=== PATIENT | female | born 1980 | race Caucasian/White ===

== ENCOUNTER → 2018-01-08 | Outpatient (CLI) | payer OTHER | LOC: FIMAGING 14:33 | PROVIDERS: ATTEND Obstetrics & Gynecology | DX: O09.511 Supervision of elderly primigravida, first trimester (principal); Z3A.12 12 weeks gestation of pregnancy ==

== ENCOUNTER → 2018-03-01 | Outpatient (CLI) | payer OTHER | LOC: FIMAGING 13:25 | PROVIDERS: ATTEND Advanced Practice Midwife | DX: O09.512 Supervision of elderly primigravida, second trimester (principal); Z3A.19 19 weeks gestation of pregnancy ==

== ENCOUNTER 2018-07-23 03:34 | Inpatient (IN) | payer OTHER ==
[2018-07-23] MEDS ORDERED: MISOPROSTOL 200 MCG TAB PR PRN (04:11)
[2018-07-23] MEDS ORDERED: TERBUTALINE SULFATE 1 MG/ML VIAL IV PRN (04:11)
[2018-07-23] MEDS ORDERED: IBUPROFEN 600 MG TAB PO PRN (04:11)
[2018-07-23] MEDS ORDERED: LIDOCAINE 1% 300 MG/30 ML SDV SC PRN (04:11)
[2018-07-23] MEDS ORDERED: OXYTOCIN/RINGERS LACTATE 1,000 ML IV PRN (04:11)
[2018-07-23] MEDS ORDERED: OLIVE OIL 118 ML BTL MISC PRN (04:11)
[2018-07-23] MEDS ORDERED: EPSOM SALT 454 GM TP PRN (04:11)
--- NOTE | 2018-07-23 04:11 | PDGENHP ---
History and Physical History and Physical: Care: [facility] HPI: Jolie De is a 37yo with IUP@ 40-3 weeks that presents to L&D with complaints of contractions since yesterday afternoon. She states throughout the night they have been getting closer and stronger. She is rating pain with contractions 5/10. She states they are lasting approx 45 seconds and happening every 3-6 minutes. She denies any LOF. She reports some small amt of vaginal spotting. She reports +FM. EDC:07/20/18 which is based on LMP: 10/13/17 which is known and consistent with Ultrasound at 8 weeks. Her is complicated by: JONI to FCM @ 17wks, AMA, h/o LEEP, erythema nodosum (nut allergy), +GBS bacteruria Review of Systems: Constitutional: Denies any fever, chills, or fatigue HEENT: denies any visual changes, difficulty swallowing, hearing loss Cardiovascular: Denies any chest pain, palpitations, leg swelling Respiratory: denies any cough, wheezing, or shortness of breathe GI: Denies any nausea, vomiting, diarrhea, constipation : denies any dysuria, urgency, frequency, vaginal bleeding, +abd pain with contractions Musculoskeletal: denies any muscle or bone pain Skin: denies any rashes Neuro: denies any headache, seizures, lightheadedness, dizziness, or loss of consciousness Psychiatric: denies any depression, anxiety, or SI/HI thoughts HISTORY: Previous OB history: G1 Past medical history: erythema nodosum (nut allergy) Past surgical history: oral surgery Social: Denies any alcohol, tobacco, or drug use. Family history: Not relevant Medications: PNV Allergies (list reaction): NKDA LABS: Rh: O+ ABS: Neg Rubella: Immune HbsAg: NR HIV: NR VDRL: NR 1hr: 120 GC: Neg Chlamydia: Neg Pap: Normal GBS: + (urine) BMI: (prepreg)21 PHYSICAL EXAM: Constitutional: WN, A&Ox3, pleasant HEENT: normocephalic atraumatic, supple Skin: Warm, dry, intact Heart: RRR, no murmur Chest: CTA-B Abdomen: Soft, nontender, gravid SVE:4/90/-2, BBOW Extremities: no edema, negative homans sign Neuro: grossly normal Psych: normal affect assessment: FHT baseline 135 +accels, no decels, moderate variability Contractions: toco q 2-5 min Assessment: 1) 37yo with IUP@ 40-3wks 2) Active labor 3) GBS + 4) Cat 1 FHR tracing Plan: 1) Admit to L&D 2) IA per protocol 3) hydrotherapy 4) IV abx 5) reassess 2-4 hr/PRN 6) anticipate Today's visit was approximately 30 min, of which >50% of visit 20 min, was spent face to face with pt on direct counseling/coordination of care.
[2018-07-23] MEDS ORDERED: PENICILLIN G POTASSIUM 5,000,000 UNIT in D5W 150 ML IV ONE (04:15)
[2018-07-23] MEDS ORDERED: TERBUTALINE SULFATE 1 MG/ML VIAL ONE (04:26)
[2018-07-23] MEDS ORDERED: OXYTOCIN 10 UNIT/ML VIAL ONE (04:26)
[2018-07-23] MEDS ORDERED: OLIVE OIL 118 ML BTL ONE (04:26)
[2018-07-23] MEDS ORDERED: AMMONIA AROMATIC 1 EACH AMP IH ONE (04:26)
[2018-07-23] MEDS ORDERED: MISOPROSTOL 200 MCG TAB ONE (04:26)
[2018-07-23] MEDS ORDERED: LIDOCAINE 1% 300 MG/30 ML SDV ONE (04:26)
[2018-07-23 04:38] LABS: PLATELET COUNT 237 10^3/uL (150-400)
[2018-07-23] MEDS: LR 1,000 ML IV PRN (04:53)
--- NOTE | 2018-07-23 08:32 | OBPROG ---
Labor Progress Note Assessment/Plan: Assessment: 37yo with IUP@40-3wks Active labor GBS+ +FHTs Plan: cont IV abx IA per protocol reassess 1-2 hr/PRN consider AROM anticipate 07/23/18 08:29 Subjective/Intrapartum Course: 07/23/18 08:30 pt doing well, breathing through each contraction. Lamination Operator and FOB @ BS, supportive. Pt reports increasing rectal pressure, denies any urge to push. Objective: 07/23/18 04:20 Patient ABO/Rh O POSITIVE 07/23/18 04:20 - SVE Dilation (cm): 7 Effacement (%): 100 Station: -1 Membranes: Intact - Contraction Pattern Assessment Current Contraction Pattern: Regular CNM Assessment - Uterine Assessment Contraction Strength: Strong Uterine Resting Tone: Palpates Soft Between Uterine Contractions Contraction Frequency (minutes): 4-6 Contraction Duration (sec): 45 - Intermittent Auscultation Auscultation Method Used: Doppler Heart Rate Auscultated (bpm): 140 FHR Acceleration(s) Auscultated: Yes FHR Deceleration(s) Auscultated: No Oxytocin Orders Assessment - Pre-Induction/Augmentation Assessment Gestational Age: 40 week(s) and 3 day(s) ICD10 Worksheet Patient Problems: Problems Problem Status Onset AMA (advanced maternal age) primigravida 35+ Acute GBS (group B streptococcus) UTI complicating Acute Normal labor and delivery Acute - ICD10 Problem Qualifiers (1) Normal labor and delivery (2) GBS (group B streptococcus) UTI complicating (3) AMA (advanced maternal age) primigravida 35+
[2018-07-23] MEDS: PENICILLIN G POTASSIUM 2,500,000 UNIT in D5W 150 ML IV SCH ×5 (08:51→21:00)
--- NOTE | 2018-07-23 11:41 | OBPROG ---
Labor Progress Note Assessment/Plan: Assessment: 37yo with IUP@40-3wks Active labor GBS+ +FHTs MSF @1108 Plan: cont IV abx continuous EFM reassess 1-2 hr/PRN change positions q 30min-1hr anticipate 07/23/18 11:35 Subjective/Intrapartum Course: 07/23/18 08:30 pt doing well, breathing through each contraction. Winderman and FOB @ BS, supportive. Pt reports increasing rectal pressure, denies any urge to push. 07/23/18 11:38 Pt breathing through contractions, continuing to do position changes. aware of need for cont EFM now since MSF. FOB and hemodialysis lab technician are supportive. Objective: 07/23/18 04:20 Patient ABO/Rh O POSITIVE 07/23/18 04:20 - SVE Dilation (cm): 7 Effacement (%): 100 Station: -1 Membranes: AROM Amniotic Fluid Color: Thick Meconium - Contraction Pattern Assessment Current Contraction Pattern: Regular - FHR Assessment Morillo FHR (bpm): 135 FHR Pattern Variability: Moderate FHR Category: 1 - Procedures Non-surgical Procedures: Amniotomy Oxytocin Orders Assessment - Pre-Induction/Augmentation Assessment Gestational Age: 40 week(s) and 3 day(s) ICD10 Worksheet Patient Problems: Problems Problem Status Onset AMA (advanced maternal age) primigravida 35+ Acute GBS (group B streptococcus) UTI complicating Acute Normal labor and delivery Acute Thick meconium stained amniotic fluid Acute - ICD10 Problem Qualifiers (1) Normal labor and delivery (2) GBS (group B streptococcus) UTI complicating (3) AMA (advanced maternal age) primigravida 35+ (4) Thick meconium stained amniotic fluid
--- NOTE | 2018-07-23 16:39 | OBPROG ---
Labor Progress Note Assessment/Plan: Assessment: 37yo with IUP@40-3wks Active labor GBS+ +FHTs MSF @1108 Plan: cont IV abx continuous EFM reassess 1-2 hr/PRN change positions q 30min-1hr anticipate Subjective/Intrapartum Course: 07/23/18 08:30 pt doing well, breathing through each contraction. Ultimate Hoops Trainer and FOB @ BS, supportive. Pt reports increasing rectal pressure, denies any urge to push. 07/23/18 11:38 Pt breathing through contractions, continuing to do position changes. aware of need for cont EFM now since MSF. FOB and lead press operator are supportive. 07/23/18 13:45 Pt doing well, reports intermittent pressure, but denies any urge to push. She is vocal through contractions. support team at BS Objective: 07/23/18 04:20 Patient ABO/Rh O POSITIVE 07/23/18 04:20 - SVE Dilation (cm): 8 Effacement (%): 100 Station: -1 Membranes: AROM Amniotic Fluid Color: Thick Meconium - Contraction Pattern Assessment Current Contraction Pattern: Regular - FHR Assessment Morillo FHR (bpm): 125 FHR Pattern Variability: Moderate FHR Category: 1 - Procedures Non-surgical Procedures: Amniotomy Oxytocin Orders Assessment - Pre-Induction/Augmentation Assessment Gestational Age: 40 week(s) and 3 day(s) ICD10 Worksheet Patient Problems: Problems Problem Status Onset AMA (advanced maternal age) primigravida 35+ Acute GBS (group B streptococcus) UTI complicating Acute Normal labor and delivery Acute Thick meconium stained amniotic fluid Acute - ICD10 Problem Qualifiers (1) Normal labor and delivery (2) GBS (group B streptococcus) UTI complicating (3) AMA (advanced maternal age) primigravida 35+ (4) Thick meconium stained amniotic fluid
--- NOTE | 2018-07-23 16:42 | OBPROG ---
Labor Progress Note Assessment/Plan: Assessment: 37yo with IUP@40-3wks Active labor GBS+ +FHTs MSF @1108 ?OP position Plan: cont IV abx continuous EFM reassess 1-2 hr/PRN change positions q 30min-1hr anticipate 07/23/18 16:41 Subjective/Intrapartum Course: 07/23/18 08:30 pt doing well, breathing through each contraction. Solution Designer and FOB @ BS, supportive. Pt reports increasing rectal pressure, denies any urge to push. 07/23/18 11:38 Pt breathing through contractions, continuing to do position changes. aware of need for cont EFM now since MSF. FOB and it network engineer are supportive. 07/23/18 13:45 Pt doing well, reports intermittent pressure, but denies any urge to push. She is vocal through contractions. support team at BS 07/23/18 16:41 Pt continues to be vocal through contractions. She has been involuntarily bearing down with occasional contraction. Objective: 07/23/18 04:20 Patient ABO/Rh O POSITIVE 07/23/18 04:20 - SVE Dilation (cm): 9 Effacement (%): 100 Station: -1 Membranes: AROM Amniotic Fluid Color: Thick Meconium - Contraction Pattern Assessment Current Contraction Pattern: Regular - FHR Assessment Morillo FHR (bpm): 120 FHR Pattern Variability: Moderate FHR Category: 1 - Procedures Non-surgical Procedures: Amniotomy Oxytocin Orders Assessment - Pre-Induction/Augmentation Assessment Gestational Age: 40 week(s) and 3 day(s) ICD10 Worksheet Patient Problems: Problems Problem Status Onset AMA (advanced maternal age) primigravida 35+ Acute GBS (group B streptococcus) UTI complicating Acute Normal labor and delivery Acute Thick meconium stained amniotic fluid Acute - ICD10 Problem Qualifiers (1) Normal labor and delivery (2) GBS (group B streptococcus) UTI complicating (3) AMA (advanced maternal age) primigravida 35+ (4) Thick meconium stained amniotic fluid
--- NOTE | 2018-07-23 19:26 | OBPROG ---
Labor Progress Note Assessment/Plan: Assessment: 37yo with IUP@40-3wks Active labor, protracted labor GBS+ +FHTs MSF @1108 ?OP position Plan: cont IV abx continuous EFM reassess 1-2 hr/PRN change positions q 30min-1hr anticipate 07/23/18 16:41 07/23/18 21:58 Subjective/Intrapartum Course: 07/23/18 08:30 pt doing well, breathing through each contraction. Counseling Case Manager and FOB @ BS, supportive. Pt reports increasing rectal pressure, denies any urge to push. 07/23/18 11:38 Pt breathing through contractions, continuing to do position changes. aware of need for cont EFM now since MSF. FOB and orthodontic laboratory technician are supportive. 07/23/18 13:45 Pt doing well, reports intermittent pressure, but denies any urge to push. She is vocal through contractions. support team at BS 07/23/18 16:41 Pt continues to be vocal through contractions. She has been involuntarily bearing down with occasional contraction. 07/23/18 19:45 Pt sitting on toilet breathing through contractions. She is working through position changes. Objective: 07/23/18 04:20 Patient ABO/Rh O POSITIVE 07/23/18 04:20 - SVE Dilation (cm): 9 Effacement (%): 100 Station: -1 Membranes: AROM Amniotic Fluid Color: Thick Meconium - Contraction Pattern Assessment Current Contraction Pattern: Regular - FHR Assessment Morillo FHR (bpm): 120 FHR Pattern Variability: Moderate FHR Category: 1 - Procedures Non-surgical Procedures: Amniotomy Oxytocin Orders Assessment - Pre-Induction/Augmentation Assessment Gestational Age: 40 week(s) and 3 day(s) ICD10 Worksheet Patient Problems: Problems Problem Status Onset AMA (advanced maternal age) primigravida 35+ Acute GBS (group B streptococcus) UTI complicating Acute Normal labor and delivery Acute Thick meconium stained amniotic fluid Acute - ICD10 Problem Qualifiers (1) Normal labor and delivery (2) GBS (group B streptococcus) UTI complicating (3) AMA (advanced maternal age) primigravida 35+ (4) Thick meconium stained amniotic fluid
[2018-07-23] MEDS ORDERED: LR 500 ML IV PRN (19:49)
[2018-07-23] MEDS ORDERED: OXYTOCIN/RINGERS LACTATE 500 ML IV SCH (20:00)
[2018-07-23] MEDS ORDERED: BUPIVACAINE 0.25% 10 ML SDV ONE (21:12)
[2018-07-23] MEDS ORDERED: fentaNYL 2MCG/ML/BUP 0.1% RTU 100 ML BAG EP ONE (21:12)
[2018-07-23] MEDS ORDERED: PHENYLEPHRINE HCL 100 MCG/ML SYR ONE (21:12)
[2018-07-23] MEDS ORDERED: ONDANSETRON 4 MG/2 ML VIAL IVP PRN (21:41)
[2018-07-23] MEDS ORDERED: NALOXONE HCL 0.4 MG/ML INJ IVP PRN (21:41)
[2018-07-23] MEDS ORDERED: PHENYLEPHRINE HCL 100 MCG/ML SYR IVP PRN (21:41)
--- NOTE | 2018-07-23 21:41 | PREANESOB ---
Obstetric Pre-Anesthesia Info - General Info : 1 Para: 0 JEANNETTE: 07/20/18 Gestational Age: 40 week(s) and 3 day(s) - Labor Status Cervical Dilation per last OB SVE: 9 Station per last OB SVE: -1 Amniotic Fluid Color: Thick Meconium Indications for Labor Analgesia: Pain Control Labor Epidural: Proposed Anesthesia Allergies/Adverse Reactions: Allergy/AdvReac Type Severity Reaction Status Date / Time tree nut Allergy Verified 07/23/18 03:48 Visit Medications: Generic Name Dose Route Start Last Admin Trade Name Freq PRN Reason Stop Dose Admin Lactated Ringer's 1,000 mls @ 0 mls/hr 07/23/18 04:11 07/23/18 04:53 Lr IV 07/24/18 04:10 1,000 mls PRN PRN Administration SEE PROTOCOL CONDITIONS Protocol Per Protocol Oxytocin/Lactated Ringer's 1,000 mls @ 125 mls/hr 07/23/18 04:11 Pitocin 20 Units/Lr (Premix) IV PRN PRN Post bleeding Penicillin G Potassium 2,500, 155 mls @ 155 mls/hr 07/23/18 09:00 07/23/18 21 :00 000 unit/ Dextrose IV 08/22/18 08:59 155 mls Q4HRS ARTIS Administration Protocol Lactated Ringer's 500 mls @ 500 mls/hr 07/23/18 19:49 Lr IV 07/24/18 19:49 PRN PRN Maternal Hypotension Oxytocin/Lactated Ringer's 500 mls @ 0 mls/hr 07/23/18 20:00 07/23/18 19:56 Pitocin 30 Units/Lr (Premix) IV 01/19/19 19:59 500 mls CONT ARTIS Administration Protocol Per Protocol Ibuprofen 600 mg 07/23/18 04:11 Motrin PO ONCE PRN post , pain Lidocaine HCl 300 mg 07/23/18 04:11 Lidocaine Hcl 1% SC 01/19/19 04:10 ONCE PRN episiotomy Magnesium Sulfate 454 gm 07/23/18 04:11 Epsom Salt TP 01/19/19 04:10 Q1H PRN perineal discomfort Misoprostol 800 - 1,000 mcg 07/23/18 04:11 Cytotec CA ONCE PRN Vaginal Atony/Bleeding Canova Oil 118 ml 07/23/18 04:11 Sweet Oil MISC 01/19/19 04:10 ONCE PRN perineal massage Terbutaline Sulfate 0.25 mg 07/23/18 04:11 Brethine IV 01/19/19 04:10 ONCE PRN Tachysystole Discontinued Medications Generic Name Dose Route Start Last Admin Trade Name Flavioq PRN Reason Stop Dose Admin Ammonia (Aromatic Spirit) Confirm 07/23/18 04:26 Ammonia Aromatic Administered 07/23/18 04:27 Dose 1 each IH .STK-MED ONE Bupivacaine HCl Confirm 07/23/18 21:12 Sensorcaine 0.25% Sdv Administered 07/23/18 21:13 Dose 10 ml .ROUTE .STK-MED ONE Fentanyl/Bupivacaine HCl Confirm 07/23/18 21:12 Fentanyl/Bupivacaine/Ns 2 Mcg/Ml 0.1% (Premix Administered 07/23/18 21:13 Dose 100 ml EP .STK-MED ONE Penicillin G Potassium 5,000, 160 mls @ 160 mls/hr 07/23/18 04:15 07/23/18 04 :53 000 unit/ Dextrose IV 07/23/18 05:14 160 mls ONCE ONE Administration Protocol Lidocaine HCl Confirm 07/23/18 04:26 Lidocaine Hcl 1% Administered 07/23/18 04:27 Dose 300 mg .ROUTE .STK-MED ONE Misoprostol Confirm 07/23/18 04:26 Cytotec Administered 07/23/18 04:27 Dose 1,000 mcg .ROUTE .STK-MED ONE Canova Oil Confirm 07/23/18 04:26 Sweet Oil Administered 07/23/18 04:27 Dose 118 ml .ROUTE .STK-MED ONE Oxytocin Confirm 07/23/18 04:26 Pitocin Administered 07/23/18 04:27 Dose 40 unit .ROUTE .STK-MED ONE Phenylephrine HCl Confirm 07/23/18 21:12 Neosynephrine Administered 07/23/18 21:13 Dose 1,000 mcg .ROUTE .STK-MED ONE Terbutaline Sulfate Confirm 07/23/18 04:26 Brethine Administered 07/23/18 04:27 Dose 1 mg .ROUTE .STK-MED ONE - Anesthesia History Response to Local Anesthetics: Normal Anesthesia & Operative History: No Prior Problems Family Anesthesia History: Not Applicable - Social History Substance Use/Abuse: Denies - Vital Signs Height/Weight (Nursing): Height 160.02 cm Weight 66.224 kg - Focused Exam Neck exam: decreased ROM Mallampati Score: Class 2 Mouth exam: normal dental/mouth exam Pulmonary: no respiratory distress Labs: 07/23/18 04:20 Patient ABO/Rh O POSITIVE 07/23/18 04:20 - Plan Anesthetic Plan: KERI Consent Signed and on Chart: Yes Patient/Guardian Understands and Agrees to Plan: Yes Urgent/Emergent Case: Tatum mckenzie completed preop but documented later for safe timely pt care
[2018-07-23] MEDS ORDERED: fentaNYL 2MCG/ML/BUP 0.1% RTU 100 ML EP SCH (22:00)
[2018-07-23] MEDS ORDERED: LR 500 ML IV SCH (22:00)
[2018-07-24] MEDS: PENICILLIN G POTASSIUM 2,500,000 UNIT in D5W 150 ML IV SCH ×2 (01:20→04:58)
[2018-07-24] MEDS: LR 1,000 ML IV PRN (02:32)
--- NOTE | 2018-07-24 06:26 | OBDEL ---
Info Type: Vaginal Presentation at Delivery: Vertex L&D Analgesia/Anesthesia Type: Epidural GBS+: Yes Antibiotic Used for + GBS: Ampicillin Intrapartum Medications: Generic Name Dose Route Start Last Admin Trade Name Freq PRN Reason Stop Dose Admin Penicillin G Potassium 2,500, 155 mls @ 155 mls/hr 07/23/18 09:00 07/24/18 04 :58 000 unit/ Dextrose IV 08/22/18 08:59 155 mls Q4HRS ARTIS Administration Protocol Oxytocin/Lactated Ringer's 500 mls @ 0 mls/hr 07/23/18 20:00 07/23/18 19:56 Pitocin 30 Units/Lr (Premix) IV 01/19/19 19:59 500 mls CONT ARTIS Administration Protocol Per Protocol Discontinued Medications Generic Name Dose Route Start Last Admin Trade Name Freq PRN Reason Stop Dose Admin Lactated Ringer's 1,000 mls @ 0 mls/hr 07/23/18 04:11 07/24/18 02:32 Lr IV 07/24/18 04:10 1,000 mls PRN PRN Administration SEE PROTOCOL CONDITIONS Protocol Per Protocol Penicillin G Potassium 5,000, 160 mls @ 160 mls/hr 07/23/18 04:15 07/23/18 04 :53 000 unit/ Dextrose IV 07/23/18 05:14 160 mls ONCE ONE Administration Protocol - Care Provider Addictions Therapist/MASONRY SUPERVISOR: Karla Law - Hospital Course Intrapartum: 07/23/18 08:30 pt doing well, breathing through each contraction. Pediatric Physiatrist and FOB @ BS, supportive. Pt reports increasing rectal pressure, denies any urge to push. 07/23/18 11:38 Pt breathing through contractions, continuing to do position changes. aware of need for cont EFM now since MSF. FOB and stogy maker are supportive. 07/23/18 13:45 Pt doing well, reports intermittent pressure, but denies any urge to push. She is vocal through contractions. support team at BS 07/23/18 16:41 Pt continues to be vocal through contractions. She has been involuntarily bearing down with occasional contraction. 07/23/18 19:45 Pt sitting on toilet breathing through contractions. She is working through position changes. Indications for Delivery: Spontaneous Labor Vaginal Delivery - Delivery Provider Delivery Physician/CNM: Adri Sharma Proctoring Provider: Tarah Peñaloza - Labor and Delivery Onset of Contractions Date: 07/23/18 Onset of Contractions Time: 00:00 Onset of Contractions Type: Augmented Rupture of Membranes Date: 07/23/18 Rupture of Membranes Time: 11:08 Rupture of Membranes Type: Artificial Amniotic Fluid Color: Thick Meconium Dilation Complete Date: 07/24/18 Dilation Complete Time: 01:08 Placenta Delivery Date: 07/24/18 Placenta Delivery Time: 06:02 Total Hours of Labor: 30 Non-surgical Procedures: Amniotomy Laceration: 2nd Degree Repair: 3-0, Vicryl Vaginal Sponge Count Correct: Yes Vaginal Needle Count Correct: Yes Vaginal Sweep Performed: Yes EBL: 250 Delivery Events: Nuchal Cord - Medications Labor Augmentation/Induction Methods Used: Pitocin Labor Augmentation/Induction Indication: Inadequate Contraction Frequency, Inadequate Contraction Strength Assissted Delivery Assisted Delivery Type: Vacuum Station: +2, +3 Pop offs (Total): 0 Pulls (Total): 2 Assisted Delivery Comment: I was called to assess patient for possible vacuum assist secondary to maternal exhaustion. She was having good pushing efforts and had brought the baby down to a +3 station. Baby was in OP presentation and had a moderate amount of caput. I applied the vacuum @ 5:41 and pulled through 2 contractions. We brought the baby to [facility], I removed the vacuum and she delivered the baby. Nuchal cord x1 was reduced and baby did well. No injury to baby. Patient had a 2 degree perineal laceration, repaired with 3-0 vicryl. Apgars 8,9. Mom and baby are doing well. Data JEANNETTE: 07/20/18 Gestational Age: 40 week(s) and 4 day(s) Morillo Delivery Date: 07/24/18 Delivery Time: 05:52 Sex of Infant: Male Score (1 Min): 8 Score (5 Min): 9 ICD10 Worksheet Patient Problems: Problems Problem Status Onset AMA (advanced maternal age) primigravida 35+ Acute GBS (group B streptococcus) UTI complicating Acute Normal labor and delivery Acute Thick meconium stained amniotic fluid Acute Vacuum extraction, delivered, current hospitalization Acute - ICD10 Problem Qualifiers (1) Vacuum extraction, delivered, current hospitalization
[2018-07-24] MEDS ORDERED: HYDROCORTISONE 0.5% CREAM TP PRN (06:31)
[2018-07-24] MEDS ORDERED: SIMETHICONE 80 MG TAB CHEW PO PRN (06:31)
[2018-07-24] MEDS ORDERED: oxyCODONE IR 5 MG TAB PO PRN (06:31)
--- NOTE | 2018-07-24 06:34 | OBPROG ---
Labor Progress Note Assessment/Plan: Assessment: 37yo with IUP@40-3wks Active labor, protracted labor GBS+ +FHTs MSF @1108 ?OP position Plan: cont IV abx continuous EFM reassess 1-2 hr/PRN change positions q 30min-1hr anticipate Subjective/Intrapartum Course: 07/23/18 08:30 pt doing well, breathing through each contraction. Anesthesiologist Assistant Certified and FOB @ BS, supportive. Pt reports increasing rectal pressure, denies any urge to push. 07/23/18 11:38 Pt breathing through contractions, continuing to do position changes. aware of need for cont EFM now since MSF. FOB and work adjustment instructor are supportive. 07/23/18 13:45 Pt doing well, reports intermittent pressure, but denies any urge to push. She is vocal through contractions. support team at BS 07/23/18 16:41 Pt continues to be vocal through contractions. She has been involuntarily bearing down with occasional contraction. 07/23/18 19:45 Pt sitting on toilet breathing through contractions. She is working through position changes. 07/24/18 01:15 Pt comfortable with KERI. denies any pain. has some pressure and intermittent urge to push. Objective: 07/23/18 04:20 Patient ABO/Rh O POSITIVE 07/23/18 04:20 - SVE Dilation (cm): 10 Effacement (%): 100 Station: 0 Membranes: AROM Amniotic Fluid Color: Thick Meconium Dilation Complete Date: 07/24/18 Dilation Complete Time: 01:08 - Contraction Pattern Assessment Current Contraction Pattern: Regular - Procedures Non-surgical Procedures: Amniotomy Oxytocin Orders Assessment - Pre-Induction/Augmentation Assessment Gestational Age: 40 week(s) and 3 day(s) ICD10 Worksheet Patient Problems: Problems Problem Status Onset AMA (advanced maternal age) primigravida 35+ Acute GBS (group B streptococcus) UTI complicating Acute Normal labor and delivery Acute Thick meconium stained amniotic fluid Acute - ICD10 Problem Qualifiers (1) Normal labor and delivery (2) GBS (group B streptococcus) UTI complicating (3) AMA (advanced maternal age) primigravida 35+ (4) Thick meconium stained amniotic fluid
--- NOTE | 2018-07-24 06:36 | OBPROG ---
Labor Progress Note Assessment/Plan: Assessment: 37yo with IUP@40-3wks Active labor, protracted labor GBS+ +FHTs MSF @1108 ?OP position Plan: cont pushing will call Dr Peñaloza to magaly for VAVD 2/2 maternal exhaustion Subjective/Intrapartum Course: 07/23/18 08:30 pt doing well, breathing through each contraction. Mold Shifter and FOB @ BS, supportive. Pt reports increasing rectal pressure, denies any urge to push. 07/23/18 11:38 Pt breathing through contractions, continuing to do position changes. aware of need for cont EFM now since MSF. FOB and integration architect are supportive. 07/23/18 13:45 Pt doing well, reports intermittent pressure, but denies any urge to push. She is vocal through contractions. support team at BS 07/23/18 16:41 Pt continues to be vocal through contractions. She has been involuntarily bearing down with occasional contraction. 07/23/18 19:45 Pt sitting on toilet breathing through contractions. She is working through position changes. 07/24/18 01:15 Pt comfortable with KERI. denies any pain. has some pressure and intermittent urge to push. 07/24/18 05:15 Pt pushing well, but poor strength due to maternal exhaustion. She states she is exhausted and does not think she can push anymore. Objective: 07/23/18 04:20 Patient ABO/Rh O POSITIVE 07/23/18 04:20 - SVE Dilation (cm): 10 Effacement (%): 100 Station: +1 Membranes: AROM Amniotic Fluid Color: Thick Meconium Dilation Complete Date: 07/24/18 Dilation Complete Time: 01:08 - Contraction Pattern Assessment Current Contraction Pattern: Regular - Procedures Non-surgical Procedures: Amniotomy Oxytocin Orders Assessment - Pre-Induction/Augmentation Assessment Gestational Age: 40 week(s) and 3 day(s) ICD10 Worksheet Patient Problems: Problems Problem Status Onset AMA (advanced maternal age) primigravida 35+ Acute GBS (group B streptococcus) UTI complicating Acute Normal labor and delivery Acute Thick meconium stained amniotic fluid Acute Vacuum extraction, delivered, current hospitalization Acute - ICD10 Problem Qualifiers (1) Normal labor and delivery (2) GBS (group B streptococcus) UTI complicating (3) AMA (advanced maternal age) primigravida 35+ (4) Thick meconium stained amniotic fluid
--- NOTE | 2018-07-24 07:01 | OBPP ---
Progress Note Assessment/Plan: Assessment: [id number] s/p VAVD with PPH EBL 600 Plan: cont to monitor bleeding routine PP care Subjective/ Course: 07/24/18 06:59 Pt having bleeding- called to BS by RN. bleeding and clots noted. Objective: 07/23/18 04:20 Patient ABO/Rh O POSITIVE 07/23/18 04:20 Exam +clots manually removed clots and membranes uterus firm bladder drained for >1000 Uterine Position/Fundal Height: At Umbilicus, Displaced to Right Uterine Tone: Firm
--- NOTE | 2018-07-24 07:29 | OBPP ---
Progress Note Assessment/Plan: Assessment: VAVD PP hemorrhage Plan: maintain pt on PP for surveillance 07/24/18 07:24 Subjective/ Course: 07/24/18 06:59 Pt having bleeding- called to BS by RN. bleeding and clots noted. 07/24/18 07:24 Assumed care of pt at 0700. Called to pt room to evaluate PP bleeding. Additional 474 ml of blood loss. 800 mcg cytotec given, additional 10 mg pit IM at this time. Good hemostasis. Total PP quantitiative blood loss at this time = 1154 ml. Objective: 07/23/18 04:20 Patient ABO/Rh O POSITIVE 07/23/18 04:20 Last BP 91/53. Pulse 86. Uterine Position/Fundal Height: At Umbilicus, Displaced to Right (slight right displacement, improved with straight cath) Uterine Tone: Firm
[2018-07-24] MEDS: ACETAMINOPHEN 325 MG TAB PO SCH ×3 (08:28→20:39)
--- NOTE | 2018-07-24 10:29 | OBPP ---
Progress Note Assessment/Plan: Assessment: VAVD PP hemorrhage Plan: maintain pt on PP for surveillance 07/24/18 07:24 Subjective/ Course: 07/24/18 06:59 Pt having bleeding- called to BS by RN. bleeding and clots noted. 07/24/18 07:24 Assumed care of pt at 0700. Called to pt room to evaluate PP bleeding. Additional 474 ml of blood loss. 800 mcg cytotec given, additional 10 mg pit IM at this time. Good hemostasis. Total PP quantitiative blood loss at this time = 1154 ml. 07/24/18 10:26 Fundus firm at this time. Pt had an additional 250 ml blood loss since last note. Indwelling catheter placed. Plan monitoring on L&D for additional recovery time. PO methergine started. Objective: 07/23/18 04:20 Patient ABO/Rh O POSITIVE 07/23/18 04:20 Last BP 85/51, pulse 89. Uterine Position/Fundal Height: At Umbilicus Uterine Tone: Firm
[2018-07-24] MEDS: METHYLERGONOVINE MAL 0.2 MG TAB PO SCH ×3 (11:43→20:39)
[2018-07-24] MEDS: IBUPROFEN 600 MG TAB PO SCH ×3 (14:08→22:35)
[2018-07-25] MEDS: METHYLERGONOVINE MAL 0.2 MG TAB PO SCH ×3 (00:35→12:48)
[2018-07-25] MEDS: ACETAMINOPHEN 325 MG TAB PO SCH ×5 (02:46→22:51)
[2018-07-25] MEDS: IBUPROFEN 600 MG TAB PO SCH ×3 (04:51→19:43)
--- NOTE | 2018-07-25 09:51 | POSTANESTH ---
Post Anesthetic Evaluation Cardiovascular Status: Normal, Stable Respiratory Status: Normal, Stable Level of Consciousness/Mental Status: Can Participate in Eval, Alert and Oriented Pain Control: Adequate, Prn Tx Ordered Nausea/Vomiting Control: Adequate, Prn Tx Ordered Complications Possibly Related to Anesthesia: None Noted Notes: able to ambulate, tolerating PO, denies weakness/paresthesias. still experiencing urinary retention requiring reyes catheter - unlikely due to epidural given that it was d/c'ed >24hr ago and no sensorimotor deficits.
--- NOTE | 2018-07-25 11:57 | OBPP ---
Progress Note Assessment/Plan: Assessment: 37 y/o P1 s/p ppd #1 Difficulty voiding - catheter in place anemia Plan: Will d/c reyes now - reassess if unable to void on her own Iron bid Routine pp care - anticipate d/c tomorrow 07/25/18 15:18 07/25/18 15:21 Subjective/ Course: 07/24/18 06:59 Pt having bleeding- called to BS by RN. bleeding and clots noted. 07/24/18 07:24 Assumed care of pt at 0700. Called to pt room to evaluate PP bleeding. Additional 474 ml of blood loss. 800 mcg cytotec given, additional 10 mg pit IM at this time. Good hemostasis. Total PP quantitiative blood loss at this time = 1154 ml. 07/24/18 10:26 Fundus firm at this time. Pt had an additional 250 ml blood loss since last note. Indwelling catheter placed. Plan monitoring on L&D for additional recovery time. PO methergine started. 07/25/18 15:22 feeling good but tired - reyes catheter in place, pain well controlled with oral pain meds, tolerating activity and regular diet going well. Objective: 07/24/18 17:35 Patient ABO/Rh O POSITIVE 07/23/18 04:20 Temp Pulse Resp BP Pulse Ox 36.0 C 70 16 89/51 L 97 07/25/18 10:36 07/25/18 10:36 07/25/18 10:36 07/25/18 10:36 07/25/18 00:30 Uterine Position/Fundal Height: At Umbilicus Uterine Tone: Firm Physical Exam - Physical Exam EENT: PERRL/EOMI Neck: full range of motion Respiratory: normal breath sounds Cardiac/Chest: regular rate, rhythm Abdomen: non-tender Extremities: normal range of motion Skin: normal color, warm/dry Neuro/Psych: no motor/sensory deficits, alert, normal mood/affect, oriented x 3
[2018-07-25] MEDS ORDERED: ACETAMINOPHEN 325 MG TAB PO SCH (19:15)
[2018-07-25] MEDS: FERROUS SULFATE 325 MG TAB PO SCH (19:43)
[2018-07-25] MEDS: DOCUSATE SODIUM 100 MG CAP PO PRN (19:46)
[2018-07-26] MEDS ORDERED: IBUPROFEN 600 MG TAB PO SCH (01:09)
[2018-07-26] MEDS: IBUPROFEN 600 MG TAB PO SCH ×4 (01:49→20:14)
[2018-07-26] MEDS: ACETAMINOPHEN 325 MG TAB PO SCH ×3 (06:35→18:33)
[2018-07-26] MEDS: FERROUS SULFATE 325 MG TAB PO SCH ×2 (07:40→20:14)
[2018-07-26] MEDS: DOCUSATE SODIUM 100 MG CAP PO PRN (07:40)
[2018-07-26 12:52] LABS: PLATELET COUNT 247 10^3/uL (150-400)
--- NOTE | 2018-07-26 15:25 | OBPP ---
Progress Note Assessment/Plan: Assessment: Plan: 07/26/18 15:28 A: PPD #2 Severe anemia r/t hemorrhage; bleeding WNL now and has been since passing clot; pt is symptomatic Establishing P: Consulted with Dr Sharma regarding symptoms, hct and recommendations for blood transfusion. After discussing with the patient, she and her partner consented to the 2 units of packed RBC's. Will reassess CBC 1 hour after completion of infusions and again in the morning. Will closely monitor for additional blood loss. Subjective/ Course: 07/24/18 06:59 Pt having bleeding- called to BS by RN. bleeding and clots noted. 07/24/18 07:24 Assumed care of pt at 0700. Called to pt room to evaluate PP bleeding. Additional 474 ml of blood loss. 800 mcg cytotec given, additional 10 mg pit IM at this time. Good hemostasis. Total PP quantitiative blood loss at this time = 1154 ml. 07/24/18 10:26 Fundus firm at this time. Pt had an additional 250 ml blood loss since last note. Indwelling catheter placed. Plan monitoring on L&D for additional recovery time. PO methergine started. 07/25/18 15:22 feeling good but tired - reyes catheter in place, pain well controlled with oral pain meds, tolerating activity and regular diet going well. 07/26/18 1400 Pt seen reports feeling very tired. States she is ambulating ok. Feels a little dizzy. Reports she is voiding without difficulty and bleeding has been minimal since passing a large clot last night. Clot passed was approx 450 ml. Baby has been well. Denies any discomfort with feedings. States she is quite uncomfortable but declined oxycodone. Managing pain with ibuprofen and tylenol. Objective: 07/26/18 11:30 Patient ABO/Rh O POSITIVE 07/23/18 04:20 Temp Pulse Resp BP Pulse Ox 37.0 C 76 16 95/49 L 99 07/26/18 08:00 07/26/18 08:00 07/26/18 08:00 07/26/18 08:00 07/26/18 08:00 Hct from yesterday was 23.7. Given additional blood loss, repeated CBC and hct has dropped to 19.2. Fundus firm; minimal bleeding Uterine Position/Fundal Height: At Umbilicus Uterine Tone: Firm
--- NOTE | 2018-07-26 17:30 | OBPP ---
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 bleeding and clots noted. 07/24/18 07:24 Assumed care of pt at 0700. Called to pt room to evaluate PP bleeding. Additional 474 ml of blood loss. 800 mcg cytotec given, additional 10 mg pit IM at this time. Good hemostasis. Total PP quantitiative blood loss at this time = 1154 ml. 07/24/18 10:26 Fundus firm at this time. Pt had an additional 250 ml blood loss since last note. Indwelling catheter placed. Plan monitoring on L&D for additional recovery time. PO methergine started. 07/25/18 15:22 feeling good but tired - reyes catheter in place, pain well controlled with oral pain meds, tolerating activity and regular diet going well. 07/26/18 1400 Pt seen reports feeling very tired. States she is ambulating ok. Feels a little dizzy. Reports she is voiding without difficulty and bleeding has been minimal since passing a large clot last night. Clot passed was approx 450 ml. Baby has been well. Denies any discomfort with feedings. States she is quite uncomfortable but declined oxycodone. Managing pain with ibuprofen and tylenol. 07/26/18 17:28 Pt seen and examined. Pt is feeling tired, but feels as if getting blood is the right decision. Pt is OOB with slight dizziness, harleen regular diet, and voiding without difficulty, passing flatus. Mod lochia, no further clots. Denies any f/c /n/v/CP or SOB. BF without difficulty. Objective: 07/26/18 11:30 Patient ABO/Rh O POSITIVE 07/23/18 04:20 Temp Pulse Resp BP Pulse Ox 37.0 C 76 16 95/49 L 99 07/26/18 08:00 07/26/18 08:00 07/26/18 08:00 07/26/18 08:00 07/26/18 08:00 Uterine Position/Fundal Height: At Umbilicus Uterine Tone: Firm Physical Exam - Physical Exam General Appearance: WD/WN, alert, no apparent distress Respiratory: lungs clear, normal breath sounds Cardiac/Chest: regular rate, rhythm Abdomen: normal bowel sounds, non-tender, soft Extremities: non-tender, normal inspection Skin: pallor Neuro/Psych: alert, normal mood/affect, oriented x 3
[2018-07-26 21:13] LABS: PLATELET COUNT 255 10^3/uL (150-400)
--- NOTE | 2018-07-26 23:46 | OBPP ---
Progress Note Assessment/Plan: Assessment: Plan: 07/26/18 15:28 A: PPD #2 Severe anemia r/t hemorrhage; bleeding WNL now and has been since passing clot; pt is symptomatic Establishing P: Consulted with Dr Sharma regarding symptoms, hct and recommendations for blood transfusion. After discussing with the patient, she and her partner consented to the 2 units of packed RBC's. Will reassess CBC 1 hour after completion of infusions and again in the morning. Will closely monitor for additional blood loss. 07/26/18 23:45 A: Blood transfusion completed; feeling much better P: Saline lock discontinued per patient request. If needed will place another one. CBC in the morning. Continue iron supplements as prescribed. If she is doing well in the morning may discharge home. Subjective/ Course: 07/24/18 06:59 Pt having bleeding- called to BS by RN. bleeding and clots noted. 07/24/18 07:24 Assumed care of pt at 0700. Called to pt room to evaluate PP bleeding. Additional 474 ml of blood loss. 800 mcg cytotec given, additional 10 mg pit IM at this time. Good hemostasis. Total PP quantitiative blood loss at this time = 1154 ml. 07/24/18 10:26 Fundus firm at this time. Pt had an additional 250 ml blood loss since last note. Indwelling catheter placed. Plan monitoring on L&D for additional recovery time. PO methergine started. 07/25/18 15:22 feeling good but tired - reyes catheter in place, pain well controlled with oral pain meds, tolerating activity and regular diet going well. 07/26/18 1400 Pt seen reports feeling very tired. States she is ambulating ok. Feels a little dizzy. Reports she is voiding without difficulty and bleeding has been minimal since passing a large clot last night. Clot passed was approx 450 ml. Baby has been well. Denies any discomfort with feedings. States she is quite uncomfortable but declined oxycodone. Managing pain with ibuprofen and tylenol. 07/26/18 17:28 Pt seen and examined. Pt is feeling tired, but feels as if getting blood is the right decision. Pt is OOB with slight dizziness, harleen regular diet, and voiding without difficulty, passing flatus. Mod lochia, no further clots. Denies any f/c /n/v/CP or SOB. BF without difficulty. 07/26/18 23:43 Feeling much better after completion of blood transfusion. Requested IV saline lock removed if CBC adequate. Agrees to having it replaced as needed but states it is causing her discomfort. Bleeding has remained minimal. She is able to ambulate without difficulty and voiding adequate amounts. Objective: 07/26/18 21:00 Patient ABO/Rh O POSITIVE 07/23/18 04:20 Temp Pulse Resp BP Pulse Ox 36.4 C 74 16 102/57 L 98 07/26/18 20:00 07/26/18 20:00 07/26/18 20:00 07/26/18 20:00 07/26/18 20:00 HCT increased from 19.2 to 24.1 Uterine Position/Fundal Height: Umbilicus -1 Uterine Tone: Firm
[2018-07-27] MEDS: ACETAMINOPHEN 325 MG TAB PO SCH ×3 (00:33→13:46)
[2018-07-27] MEDS: IBUPROFEN 600 MG TAB PO SCH ×3 (02:00→13:45)
[2018-07-27 06:31] LABS: PLATELET COUNT 265 10^3/uL (150-400)
[2018-07-27] MEDS: FERROUS SULFATE 325 MG TAB PO SCH (07:58)
[2018-07-27 08:56] VITALS: BP 109/68
--- NOTE | 2018-07-27 10:46 | OBGCSDC ---
General Delivery Information - General Info : 1 Para: 1 Abortions: 0 Type: Vaginal L&D Analgesia/Anesthesia Type: Epidural, Local, Nitrous Admission Date: 07/23/18 Labs: Patient ABO/Rh O POSITIVE 07/23/18 04:20 Hct 23.1 % (38.0-47.0) L 07/27/18 06:20 - Hospital Course Intrapartum: 07/23/18 08:30 pt doing well, breathing through each contraction. Mica Builder and FOB @ BS, supportive. Pt reports increasing rectal pressure, denies any urge to push. 07/23/18 11:38 Pt breathing through contractions, continuing to do position changes. aware of need for cont EFM now since MSF. FOB and machine hand are supportive. 07/23/18 13:45 Pt doing well, reports intermittent pressure, but denies any urge to push. She is vocal through contractions. support team at BS 07/23/18 16:41 Pt continues to be vocal through contractions. She has been involuntarily bearing down with occasional contraction. 07/23/18 19:45 Pt sitting on toilet breathing through contractions. She is working through position changes. 07/24/18 01:15 Pt comfortable with KERI. denies any pain. has some pressure and intermittent urge to push. 07/24/18 05:15 Pt pushing well, but poor strength due to maternal exhaustion. She states she is exhausted and does not think she can push anymore. : 07/24/18 06:59 Pt having bleeding- called to BS by RN. bleeding and clots noted. 07/24/18 07:24 Assumed care of pt at 0700. Called to pt room to evaluate PP bleeding. Additional 474 ml of blood loss. 800 mcg cytotec given, additional 10 mg pit IM at this time. Good hemostasis. Total PP quantitiative blood loss at this time = 1154 ml. 07/24/18 10:26 Fundus firm at this time. Pt had an additional 250 ml blood loss since last note. Indwelling catheter placed. Plan monitoring on L&D for additional recovery time. PO methergine started. 07/25/18 15:22 feeling good but tired - reyes catheter in place, pain well controlled with oral pain meds, tolerating activity and regular diet going well. 07/26/18 1400 Pt seen reports feeling very tired. States she is ambulating ok. Feels a little dizzy. Reports she is voiding without difficulty and bleeding has been minimal since passing a large clot last night. Clot passed was approx 450 ml. Baby has been well. Denies any discomfort with feedings. States she is quite uncomfortable but declined oxycodone. Managing pain with ibuprofen and tylenol. 07/26/18 17:28 Pt seen and examined. Pt is feeling tired, but feels as if getting blood is the right decision. Pt is OOB with slight dizziness, harleen regular diet, and voiding without difficulty, passing flatus. Mod lochia, no further clots. Denies any f/c /n/v/CP or SOB. BF without difficulty. 07/26/18 23:43 Feeling much better after completion of blood transfusion. Requested IV saline lock removed if CBC adequate. Agrees to having it replaced as needed but states it is causing her discomfort. Bleeding has remained minimal. She is able to ambulate without difficulty and voiding adequate amounts. 07/27/18 10:43 Feeling tired. Bleeding is very minimal, "like a light period." Voiding well. Ambulating independently. Denies dizziness today. Breast feeding well, nipples intact. Breasts slightly engorged. Plan d/c home this afternoon after repeat H&H. Vaginal - Delivery Provider Delivery Physician/CNM: Adri Sharma - Diagnosis Labor: Augmented Rupture of Membranes Type: Artificial Amniotic Fluid Color: Thick Meconium Laceration: 2nd Degree Repair: 3-0, Vicryl Delivery Events: Nuchal Cord - Procedures Assisted Delivery Type: Vacuum Non-surgical Procedures: Amniotomy - Delivery Non-surgical Procedures: Amniotomy Data JEANNETTE: 07/20/18 Gestational Age: 41 week(s) and 0 day(s) [place] Delivery Date: 07/24/18 Delivery Time: 05:52 Sex of Infant: Male [place] Weight (gm): 3816 g Score (1 Min): 8 Score (5 Min): 9 Discharge Information - Discharge Information Condition: Good Instruction/Follow Up: One Week, Two Weeks
[2018-07-27] MEDS: DOCUSATE SODIUM 100 MG CAP PO PRN (16:24)
== END 2018-07-27 18:09 | disposition home or self-care (01) | DRG 806 ==
LOC: FLD 03:34 → OBSVTOIN 03:34 → FOB 07-24 13:40
PROVIDERS: ADMIT Advanced Practice Midwife; ATTEND Obstetrics & Gynecology
DX: O77.0 Labor and delivery complicated by meconium in amniotic fluid (principal); O72.1 Other immediate postpartum hemorrhage; O90.81 Anemia of the puerperium; D62 Acute posthemorrhagic anemia; O75.81 Maternal exhaustion complicating labor and delivery; O70.1 Second degree perineal laceration during delivery; O69.81X0 Labor and delivery complicated by cord around neck, without compression, not applicable or unspecified; O99.824 Streptococcus B carrier state complicating childbirth; Z3A.40 40 weeks gestation of pregnancy; Z37.0 Single live birth
CPT/HCPCS: J2370; J2540; J2590; J3105; P9016

== ENCOUNTER → 2018-08-09 | Outpatient (CLI) | payer OTHER | LOC: FLACT 10:01 | PROVIDERS: ATTEND Advanced Practice Midwife | DX: Z39.1 Encounter for care and examination of lactating mother (principal) | CPT/HCPCS: G0463 ==

== ENCOUNTER → 2018-08-15 | Outpatient (CLI) | payer OTHER | LOC: FLACT 14:28 | PROVIDERS: ATTEND Advanced Practice Midwife | DX: Z39.1 Encounter for care and examination of lactating mother (principal) | CPT/HCPCS: G0463 ==

== ENCOUNTER 2018-09-06 12:35 | Day surgery (SDC) | payer OTHER ==
--- NOTE | 2018-09-06 13:04 | PDGENHP ---
History and Physical History and Physical: HPI: Jolie De is a 37yo that is approximately 6 weeks PP with complaints of increased/heavy vaginal bleeding and passing of large blood clots. She has US done in office today that revealed a large (6.7x3.3x4.3cm) echogenic mass with a feeder vessel, cannot r/o RPOC. She had VAVD on 07/24/18 which was complicated by PPH and received 2 units of blood. She has been stable and reported intermittent bleeding through weeks 1-3 . She was seen in office on Monday09/04/18 for her routine visit where minimal bleeding was noted and she denied any tenderness/ pain. Review of Systems: Constitutional: Denies any fever, chills, or fatigue HEENT: denies any visual changes, difficulty swallowing, hearing loss Cardiovascular: Denies any chest pain, palpitations, leg swelling Respiratory: denies any cough, wheezing, or shortness of breathe GI: Denies any nausea, vomiting, diarrhea, constipation; reports +cramping and bleeding : denies any dysuria, urgency, frequency; reports +vaginal bleeding (heavy) this morning, now has minimal to moderate Musculoskeletal: denies any muscle or bone pain Skin: denies any rashes Neuro: denies any headache, seizures, lightheadedness, dizziness, or loss of consciousness Psychiatric: denies any depression, anxiety, or SI/HI thoughts HISTORY: Previous OB history: VAVD 07/24/18 with PPH Past medical history: erythema nodosum (nut allergy) Past surgical history: oral surgery Social: Denies any alcohol, tobacco, or drug use. , Floyd; son Syd Family history: Not relevant Medications: PNV Allergies (list reaction): NKDA LABS: Rh: O+ ABS: Neg Rubella: Immune HbsAg: NR HIV: NR VDRL: NR BMI: 21 PHYSICAL EXAM: Constitutional: WN, A&Ox3, pleasant HEENT: normocephalic atraumatic, supple Skin: Warm, dry, intact Heart: RRR, no murmur Chest: CTA-B Abdomen: Soft, nontender SVE: deferred Extremities: no edema, negative homans sign Neuro: grossly normal Psych: normal affect US: PP 6 weeks a Large echogenic mass seen within the entire EC with a feeder vessel. It is 6.7x3.3x4.3cm. Probably RPOC bilateral OV WNL No FF seen Assessment: * [id number] approx 6 weeks PP * increased VB with large echogenic mass in uterus (cannot r/o RPOC) * h/o VAVD with PPH and blood transfusion with 2 units of blood Plan: * Admit to L&D * proceed with D&C with US guidance * Dr Jessica Chandra aware and agrees. Today's visit was approximately 45 min, of which >50% of visit 30 min, was spent face to face with pt on direct counseling/coordination of care.
[2018-09-06 13:05] LABS: PLATELET COUNT 306 10^3/uL (150-400)
[2018-09-06] MEDS ORDERED: DOXYCYCLINE HYCLATE 100 MG CAP/TAB PO ONE (13:06)
[2018-09-06] MEDS ORDERED: LR 1,000 ML IV ONE (13:06)
--- NOTE | 2018-09-06 14:40 | PDANEPAE ---
ANE History of Present Illness 37 yo for D and C, retained POC 6 weeks post ANE Past Medical History - Cardiovascular History Hx Hypertension: No Hx Arrhythmias: No Hx Chest Pain: No Hx Coronary Artery / Peripheral Vascular Disease: No Hx CHF / Valvular Disease: No Hx Palpitations: No - Pulmonary History Hx Oxygen in Use at Home: No Hx Sleep Apnea: No - Chronic Pain History Chronic Pain: No ANE Review of Systems Review of Systems: - Exercise capacity METS (RN): 5 METS ANE Patient History - Allergies Allergies/Adverse Reactions: tree nut Allergy (Verified 07/23/18 03:48) - Home Medications Home Medications: Docosahexanoic Acid [Dha] 1 tab PO BID 09/06/18 [Last Taken 09/05/18 18:00] Floradix 20 ml PO BID 09/06/18 [Last Taken 09/05/18 18:00] Ibuprofen 600 mg PO PRN PRN 09/06/18 [Last Taken 09/05/18 20:00] Pnv No.121/Iron/Folic Acid [ Multivitamin Tablet] 1 tab PO 09/06/18 [ Last Taken 09/03/18 18:00] - NPO status NPO Since - Liquids (Date): 09/06/18 NPO Since - Liquids (Time): 10:15 NPO Since - Solids (Date): 09/06/18 NPO Since - Solids (Time): 08:15 - Anes Hx Anes Hx: no prior problems - Smoking Hx Smoking Status: Never smoked ANE Labs/Vital Signs - Labs Result Diagrams: 09/06/18 12:30 - Vital Signs Blood Pressure: 106/60 Heart Rate: 52 Respiratory Rate: 16 Height: 5 ft 3 in Weight: 56.245 kg ANE Physical Exam - Airway Neck exam: FROM Mallampati Score: Class 2 Mouth exam: normal dental/mouth exam - Pulmonary Pulmonary: no respiratory distress - Cardiovascular Cardiovascular: regular rate and rhythym - ASA Status ASA Status: II ANE Anesthesia Plan Anesthesia Plan: MAC
[2018-09-06] MEDS ORDERED: MIDAZOLAM 2 MG/2 ML VIAL IVP ONE (15:29)
[2018-09-06] MEDS ORDERED: PROPOFOL/EMULSION 500 MG/50 ML BOTTLE IV ONE (15:31)
[2018-09-06] MEDS ORDERED: CLINDAMYCIN 600 MG/DEXTROSE 50 ML IV ONE (15:45)
[2018-09-06] MEDS ORDERED: fentaNYL 100 MCG/2 ML INJ ONE (15:52)
[2018-09-06] MEDS ORDERED: ALBUTEROL 3 ML DEYVIAL IH PRN (16:10)
[2018-09-06] MEDS ORDERED: ONDANSETRON 4 MG/2 ML VIAL IVP PRN (16:10)
[2018-09-06] MEDS ORDERED: DEXAMETHASONE 4 MG/ML VIAL IVP PRN (16:10)
[2018-09-06] MEDS ORDERED: NALOXONE HCL 0.4 MG/ML INJ IVP PRN (16:10)
[2018-09-06] MEDS ORDERED: HYDROmorphONE/DILAUDID 2 MG/ML INJ IVP PRN (16:10)
[2018-09-06] MEDS ORDERED: fentaNYL 100 MCG/2 ML INJ IVP PRN (16:10)
[2018-09-06] MEDS ORDERED: LABETALOL HCL 5 MG/ML 20 ML MDV IVP PRN (16:10)
[2018-09-06] MEDS ORDERED: PHENYLEPHRINE HCL 100 MCG/ML SYR IVP PRN (16:10)
[2018-09-06] MEDS ORDERED: ACETAMINOPHEN 500 MG TAB PO PRN (16:10)
[2018-09-06] MEDS ORDERED: PROMETHAZINE HCL 25 MG/ML INJ IVP PRN (16:10)
[2018-09-06] MEDS ORDERED: METOCLOPRAMIDE 10 MG/2 ML VIAL IVP PRN (16:10)
[2018-09-06] MEDS ORDERED: LR 500 ML IV PRN (16:10)
[2018-09-06] MEDS ORDERED: ONDANSETRON 4 MG/2 ML VIAL ONE (16:12)
[2018-09-06] MEDS ORDERED: METHYLERGONOVINE MAL 0.2 MG/ML INJ ONE (16:12)
[2018-09-06] MEDS ORDERED: KETOROLAC 30 MG/1 ML SDV ONE (16:12)
[2018-09-06] MEDS ORDERED: METHYLERGONOVINE MAL 0.2 MG/ML INJ IM ONE (16:19)
--- NOTE | 2018-09-06 16:28 | POSTOPPROG ---
Post Op Note Date of Operation: 09/06/18 Surgeon: Jessica Chandra [place] Tender: Adri Sharma CNM for u/s guidance Anesthesiologist: MARQUITA Perry Anesthesia: IV Sedation (IV general) Pre-op Diagnosis: Retained POCs with hemorrhage Post-op Diagnosis: same Indication: VAVD on 07/24, PPH D 1 with tx needed, bld restarted 09/05, u/s with RPOCs Procedure: D and C under U/S guidance Findings: easily dilated to 12.5 Sumi dilator, 12 tip used - large piece rem 3x5 cm Inf/Abcess present in the surg proc area at time of surgery?: No Depth: Organ Space EBL: 50-100 (100 with procedure, approx 1000cc prior to OR) Total fluids administered: 1000 Complications: none Specimen(s): retained POCs
--- NOTE | 2018-09-06 16:36 | POSTANESTH ---
Post Anesthetic Evaluation Cardiovascular Status: Normal, Stable Respiratory Status: Normal, Stable Level of Consciousness/Mental Status: Can Participate in Eval Pain Control: Adequate, Prn Tx Ordered Nausea/Vomiting Control: Adequate, Prn Tx Ordered Complications Possibly Related to Anesthesia: None Noted
[2018-09-06] MEDS ORDERED: METHYLERGONOVINE MAL 0.2 MG TAB PO ONE (20:15)
[2018-09-06 20:23] VITALS: BP 107/52
== END 2018-09-06 20:35 | disposition home or self-care (01) ==
LOC: FOBOP 12:35
PROVIDERS: ATTEND Obstetrics & Gynecology
PROC: 10D17ZZ Extraction of Products of Conception, Retained, Via Natural or Artificial Opening (ICD-10-PCS; principal; 2018-09-06)
DX: O72.2 Delayed and secondary postpartum hemorrhage (principal)
CPT/HCPCS: J1885; J2210; J2405; J2704; J3010; J7613